=== PATIENT | male | born 1960 | race Caucasian/White ===

== ENCOUNTER 2017-04-27 09:52 | Emergency (ER) | payer SELFPAY ==
[2017-04-27] MEDS ORDERED: Heparin Sodium 5,000 Units/ML Vial ONE (10:09)
[2017-04-27] MEDS ORDERED: Clopidogrel 75 MG Tab ONE (10:09)
[2017-04-27] MEDS ORDERED: Aspirin 81 MG Tab.Chew ONE (10:09)
[2017-04-27] MEDS ORDERED: Morphine 4 MG/ML Syringe ONE (10:09)
[2017-04-27] MEDS ORDERED: Morphine 4 MG/ML Syringe IVPUSH ONE (10:15)
[2017-04-27 10:25] LABS: CHLORIDE,CL 104 mmol/L (98-109); SODIUM,NA 140 mmol/L (138-146)
--- NOTE | 2017-04-28 01:02 | ER ---
Date of Service: 04/27/2017 SUBJECTIVE: Debbie presents to the emergency room with complains of chest pain. He states the discomfort started approximately an hour before presenting to the emergency room. The patient states that he has no history of coronary artery disease. He is a heavy smoker. He states that when the chest pain started, he was at rest and states that he became lightheaded and quite diaphoretic. He states that he was also experiencing some mild nausea. He states that the chest pain does not radiate and states that he has never experienced discomfort like this in the past. PAST MEDICAL HISTORY: Tobacco abuse disorder. MEDICATIONS: None. ALLERGIES: NKDA. REVIEW OF SYSTEMS: General: No fever or chills. HEENT: No sore throat, rhinorrhea, congestion. Respiratory: No shortness of breath. Cardiac: Please see history of present illness. GI: No nausea, vomiting, or diarrhea. No melena, hematochezia, or hematemesis. : Denies any dysuria. Musculoskeletal: No myalgias or arthralgias. Neurologic: No fainting or blackouts. He states that he is lightheaded. PHYSICAL EXAMINATION: General: This is a 57-year-old male patient, who is in mild distress. Vital Signs: Please see nurse's notes. He is normotensive with blood pressure in the 120 systolic range. Skin: Warm, ashen, and diaphoretic. Eyes: PERRLA. Extraocular movements are intact. Mouth, oral mucosa is moist. Lungs: Clear to auscultation. Heart: Regular rate and rhythm. Abdomen: Soft, nontender. There is no hepatosplenomegaly noted. There is no masses noted. Extremities: Without edema. Neurologic: The patient is alert, oriented, answers all questions appropriately. His speech is fluent. His gait is within normal limits. DIAGNOSTIC DATA: A 12-lead EKG was obtained showing a sinus rhythm with mild ST- elevation in leads 2, 3, and aVF with no significant reciprocal change. LABORATORY DATA: WBCs 9.4, hemoglobin is 15.0, platelets are 236. Coags: PT is 9.6, INR is 0.9, PTT is 62.1. Chemistry; sodium is 140, potassium is 3.9, chloride is 104, bicarb is 24, BUN is 13, creatinine 0.8. GFR is greater than 60. Glucose is 170, calcium is 8.4, corrected calcium is 8.80, total bilirubin is 0.3. AST is 12, ALT is 22, alkaline phosphatase is 85, CK is 54, troponin is 0, total protein is 7.0, albumin is 3.5. EMERGENCY ROOM COURSE: Dummy code was called. IV access was established x2. The patient was given 300 mg of Plavix in a 5000 unit heparin bolus. He was also given 324 mg of aspirin. He was not given any nitrates as it was an inferior MN and likely involved the RCA. The patient was subsequently given morphine 4 mg IV, which did improve his discomfort somewhat. He remained stable under my care in the emergency room. ASSESSMENT: ST-elevation myocardial infarction. PLAN: I did contact [facility] and spoke with Cardiology who accepted the patient in transfer. The patient will be transported by [facility] ground ambulance. I did discuss findings with the patient's . All questions were answered. MWK: 04/27/2017 23:51:12 MODL: 04/28/2017 00:34:29 /[id number]
== END 2017-04-27 10:24 | disposition short-term general hospital (02) ==
LOC: VM.ED 09:52
DX: I21.3 ST elevation (STEMI) myocardial infarction of unspecified site (principal); F17.200 Nicotine dependence, unspecified, uncomplicated
CPT/HCPCS: 36415; 80053; 82550; 84484; 85025; 85610; 85730; 93005; 96374; 96375; 99284-GF; 99291; A9270-GY; J1644; J2270

== ENCOUNTER 2023-12-21 11:05 | Emergency (ER) | payer SELFPAY | END 2023-12-21 11:46 | disposition home or self-care (01) | LOC: VM.ED 11:05 | DX: J20.9 Acute bronchitis, unspecified (principal); F17.210 Nicotine dependence, cigarettes, uncomplicated | CPT/HCPCS: 99283 ==